=== PATIENT | female | born 1955 | race African-American/Black ===

== ENCOUNTER 2017-07-11 13:38 | Emergency (ER) | payer SELFPAY ==
[~2017-07-11] VITALS: Ht 170.2 cm; Wt 80.0 kg
[2017-07-11 13:44] VITALS: BP 190/90
== END 2017-07-11 16:00 | disposition left against medical advice (07) ==
LOC: ER 13:53
DX: R10.9 Unspecified abdominal pain (principal); Z53.21 Procedure and treatment not carried out due to patient leaving prior to being seen by health care provider